=== PATIENT | female | born 1965 | race Caucasian/White ===

== ENCOUNTER 2017-08-19 11:15 | Emergency (ER) | payer OTHER ==
[~2017-08-19] VITALS: Ht 149.9 cm; Wt 158.8 kg
[~2017-08-19 11:15] MED LIST: NOHOMEMEDICATIONS
[2017-08-19] MEDS ORDERED: PROCHAMBER1 EACH INH (11:29)
[2017-08-19 12:03] LABS: HEMATOCRIT 37.2 % (37.0-47.0); HEMOGLOBIN 12.6 gm/dL (12.0-15.0); MCHC 33.9 g/dL (28.0-37.0); MCV 97.4 fL (80.0-100.0); NUCLEATED RBCS 0 /100WBC; PLATELET COUNT* 439 thou/uL (150-400); RBC 3.82 mil/uL (4.20-5.00); RDW-CV 14.6 % (10.5-14.5); WBC 10.6 thou/uL (4.0-11.0)
[2017-08-19 12:11] LABS: ANION GAP 8 mmol/L (7-16); BUN 12 mg/dL (7-18); CALCIUM 9.2 mg/dL (8.5-10.1); CHLORIDE 100 mmol/L (98-107); CO2 31 mmol/L (21-32); CREATININE 0.8 mg/dL (0.6-1.3); GLUCOSE 111 mg/dL (70-99); POTASSIUM 4.5 mmol/L (3.5-5.1); SODIUM 139 mmol/L (136-145)
[2017-08-19 12:21] LABS: ABSOLUTE LYMPHOCYTES 1.4 thou/uL (0.8-5.3); ABSOLUTE MONOCYTES 0.6 thou/uL (0.0-1.2); ABSOLUTE NEUTROPHILS 7.6 thou/uL (1.6-8.1); ALBUMIN 3.4 g/dL (3.4-5.0); ALKALINE PHOSPHATASE 73 U/L (46-116); ATYPICAL LYMPHS 1 %; NT-PRO BRAIN NAT PEPTIDE 30 pg/mL (<300); PLATELET ESTIMATE INCREASED; SGOT 19 U/L (15-37); SGPT 25 U/L (30-65); TOTAL BILIRUBIN 0.7 mg/dL (<0.1-1.0); TOTAL PROTEIN 7.4 g/dL (6.4-8.2); TROPONIN-I LEVEL <0.06 ng/mL (<0.06)
[2017-08-19] MEDS ORDERED: ZPAK PO (12:34)
[2017-08-19] MEDS ORDERED: NORCO 5-325 TA1 EACH PO (12:34)
[2017-08-19] MEDS ORDERED: DOXYCYCLINE 10100 M1 PO (13:09)
[2017-08-19 13:10] VITALS: BP 128/58
--- NOTE | 2017-08-19 16:27 | EKG ---
[place] [address] ELECTROCARDIOGRAM REPORT Name: GOKUL LANGE Room: [facility]#: [id number] Admission: 08/19/17 Attend Phys: Discharge: 08/19/17 Date of : 63 Report #: [id number] THIS REPORT FOR: //name// [facility] ED Test Date: 2017-08-19 Test Time: 11:56:15 Pat Name: GOKUL LANGE Department: Room: Gender: F Enterprise Security Architect: Joe PETERSEN : 1965 Requested By: Moni Canales Order Number: [id number] MD: Paxton Weinberg Measurements Intervals Bre[place] Rate: 90 P: -18 MN: 144 QRS: -25 QRSD: 96 T: 1 QT: 368 QTc: 451 Interpretive Statements Sinus rhythm Borderline left axis deviation Low voltage, precordial leads Consider anterior infarct Borderline T abnormalities, inferior leads No previous ECG available for comparison Electronically Signed On 08-19-2017 16:27:26 CDT by Paxton Weinberg [email or web address] <ELECTRONICALLY SIGNED> By: Paxton Weinberg MD, [facility] 08/19/17 [id number] Paxton Weinberg MD, [facility] /EPI
== END 2017-08-19 13:12 | disposition home or self-care (01) ==
LOC: M.ERS 11:15
PROVIDERS: Nurse Practitioner Family
DX: S22.31XA Fracture of one rib, right side, initial encounter for closed fracture (principal); J18.9 Pneumonia, unspecified organism; J45.909 Unspecified asthma, uncomplicated; X58.XXXA Exposure to other specified factors, initial encounter; Y93.89 Activity, other specified; Y92.89 Other specified places as the place of occurrence of the external cause; Y99.8 Other external cause status

== ENCOUNTER → 2017-09-09 | Outpatient (CLI) | payer OTHER ==
[~2017-09-09] MED LIST changes: +DOXYCYCLINE 10100 M1 PO; +HYDROCODONE-AP1 EAC6 PO; +NORCO 5-325 TA1 EACH PO; +PREDNISONE 10 M10 MG PO; +PROCHAMBER1 EACH INH; +TRAMADOL 50 MG50 MG PO; +ZPAK PO
--- NOTE | ~2017-09-09 | EKG ---
[place] [address] ELECTROCARDIOGRAM REPORT Name: GOKUL LANGE Room: [facility]#: [id number] Admission: 09/09/17 Attend Phys: Drew Brooks DO Discharge: Date of : 63 Report #: [id number] THIS REPORT FOR: //name// [facility] ED Test Date: 2017-09-10 Test Time: 15:34:39 Pat Name: GOKUL LANGE Department: Room: [facility] Gender: F Small Products Ii Assembler: Joe FALK : 1965 Requested By: Skip Mack Order Number: [id number] MD: Measurements Intervals [place] Rate: 106 P: 28 NM: 130 QRS: -73 QRSD: 97 T: 2 QT: 365 QTc: 485 Interpretive Statements Sinus tachycardia Inferior infarct, old Consider anterior infarct Compared to ECG 08/19/2017 11:56:15 Sinus rhythm no longer present T-wave abnormality no longer present Myocardial infarct finding still present [email or web address] By: [id number] Epiphany EpiphanyMD /EPI
== END ==
LOC: M.LAB 15:44
DX: S22.41XA Multiple fractures of ribs, right side, initial encounter for closed fracture (principal); R06.02 Shortness of breath; M79.89 Other specified soft tissue disorders; J18.9 Pneumonia, unspecified organism; X58.XXXA Exposure to other specified factors, initial encounter; Y93.89 Activity, other specified; Y92.89 Other specified places as the place of occurrence of the external cause; Y99.8 Other external cause status

== ENCOUNTER 2017-09-10 14:50 | Inpatient (IN) | payer OTHER ==
[~2017-09-10] VITALS: Ht 149.9 cm; Wt 160.6 kg
[~2017-09-10 14:50] MED LIST changes: -HYDROCODONE-AP1 EAC6 PO; -PREDNISONE 10 M10 MG PO; -TRAMADOL 50 MG50 MG PO
[2017-09-10 14:58] VITALS: BP 135/90
[2017-09-10] MEDS ORDERED: PREDNISONE 10 M10 MG PO (15:09)
[2017-09-10] MEDS ORDERED: TRAMADOL 50 MG50 MG PO (15:09)
--- NOTE | 2017-09-10 15:12 | NUR ---
DR. CLARK NOTIFIED OF PT LOW O2 SAT PT TAKEN DIRECTLY TO ROOM #16.
[2017-09-10 15:42] LABS: HEMATOCRIT 37.2 % (37.0-47.0); HEMOGLOBIN 12.1 gm/dL (12.0-15.0); MCH 30.9 pg (26.0-34.0); MCHC 32.5 g/dL (28.0-37.0); MCV 95.1 fL (80.0-100.0); MPV 7.1 fl. (7.2-11.1); NUCLEATED RBCS 0 /100WBC; PLATELET COUNT* 330 thou/uL (150-400); RBC 3.91 mil/uL (4.20-5.00); RDW-CV 15.6 % (10.5-14.5); WBC 11.7 thou/uL (4.0-11.0)
[2017-09-10 15:47] LABS: BE 3.9 mmol/L (-2 to +3); HCO3 31.3 mmol/L (22.0-26.0); PO2 70.9 mmHg (75.0-100.0); pH 7.333 (7.340-7.450)
[2017-09-10 15:48] LABS: PCO2 60.4 mmHg (35.0-45.0)
[2017-09-10 16:00] LABS: CALCIUM 8.5 mg/dL (8.5-10.1); CREATININE 0.8 mg/dL (0.6-1.3); POTASSIUM 4.6 mmol/L (3.5-5.1)
[2017-09-10 16:01] LABS: APTT 27.3 Seconds (25.0-31.3)
[2017-09-10 16:06] LABS: ABSOLUTE BASOPHILS 0.1 thou/uL (0.0-0.2); ABSOLUTE LYMPHOCYTES 0.7 thou/uL (0.8-5.3); ABSOLUTE MONOCYTES 0.2 thou/uL (0.0-1.2); ABSOLUTE NEUTROPHILS 10.6 thou/uL (1.6-8.1)
[2017-09-10 16:07] LABS: PLATELET ESTIMATE ADEQUATE
[2017-09-10 16:11] LABS: ALBUMIN 3.2 g/dL (3.4-5.0); TOTAL BILIRUBIN 0.5 mg/dL (<0.1-1.0); TOTAL PROTEIN 7.3 g/dL (6.4-8.2)
[2017-09-10 20:17] VITALS: BP 125/60
[2017-09-10 21:36] VITALS: BP 131/54
[2017-09-10 23:12] LABS: SOURCE THORACENTESIS
[2017-09-10 23:13] LABS: CLARITY TURBID; COLOR RED
[2017-09-10 23:59] LABS: BF EOSINOPHILS 2 %; BF LYMPHOCYTES 75 %; BF MONOCYTES 13 %; BF POLYS 10 %
[2017-09-11 03:14] LABS: BF RBC 406895 /mm3; TOTAL CELL COUNT 2296 /mm3
[2017-09-11 03:37] LABS: TOTAL VOLUME 1000 ml
[2017-09-11 04:00] VITALS: BP 115/63
--- NOTE | 2017-09-11 05:55 | NUR ---
END SHIFT: PT RESTED WELL. SHE STATES THAT HER BREATHING IS "MUCH BETTER." REMAINS ON 4L NC TO KEEP SATS AT 90-94%. PT DOES GET SOA WITH EXURSION. IVF INFUSING WITHOUT DIFFICUTLTY. SA RATE 90'S ON MONITOR. NO ECTOPY. THORACENTESIS BANDAGE TO RIGHT BACK- C/D/I. SAFETY PRECAUTIONS IN PLACE. CALL LIGHT IN REACH. PERFORMED HOURLY ROUNDING. WILL CONT TO MONITOR.
[2017-09-11 08:00] VITALS: BP 125/65
--- NOTE | 2017-09-11 08:00 | NUR ---
PT RESTING IN BED,APPEAS ALERT O X 4, DENIES CHEST PAIN, STATES SL , STATES SOB MINIMAL AT REST, ON 02 AT 2L PER NC, SATS 92% . HAS PENSING PULMONARY CONSULT. DENIES PAIN, PIV R DA, IVF
[2017-09-11 12:10] VITALS: BP 116/48
[2017-09-11 16:51] VITALS: BP 131/56
--- NOTE | 2017-09-11 17:59 | NUR ---
pt resting in bed, remains alert o x 4, denies chest pain, sob , C/O r rib secondary to rib fxs . adeq pain contrl with po tramadol, cont on IV abx, IVF, , bRP
[2017-09-11 20:00] VITALS: BP 128/81
[2017-09-12] VITALS: BP 137/85
[2017-09-12 03:59] VITALS: BP 115/61
--- NOTE | 2017-09-12 05:23 | NUR ---
ASSUMED PT CARE AT 1930, PT IS A&OX4, PT DENIES ANY PAIN OR NEEDS AT THIS TIME. PT IS TRACING NSR ON THE MONITOR, ON 2L AT START OF SHIFT, PT REMOVED SELF FROM O2. O2 SATT WAS CHECKED BY RN AND O2 SAT WAS 70 ON RA. THIS RA PLACED PT ON 4L NC TO RECOVER, O2 SATS CAME UP TO 92%. PT SLEPT ON AND OFF THROUGHOUT THE NIGHT. PT DENIES ANY PAIN. REFUSED ULTRAM THROUGHOUT THE SHIFT. HOURLY ROUNDING COMPLETED FOR PT SAFETY. PT IS UP AD RICO IN HER ROOM AND STABLE ON HER FEET. BED IN LOW POSITION, CALL LIGHT IN REACH, SPOUSE AT BED SIDE.
[2017-09-12 08:00] VITALS: BP 125/65
[2017-09-12 11:30] VITALS: BP 135/81
[2017-09-12 16:00] VITALS: BP 122/93
--- NOTE | 2017-09-12 18:35 | NUR ---
PAITNET RESTING IN BED. RESPIRATORY STATUS IS CURRENTLY WHEEZY AND MILDLY LABOURED AAT TIMES. VITAL SIGNS STABLE AND PATINET IS IN NO APPARNET SIGNS OF DISTRES AT THIS TIME. HOURLY ROUNDING COMPLETED FOR PATIENT SAFETY AND PATIENT IN NO APPARENT DISTRESS. PAITNET UTILIZING 4.0 LITERS PER NASAL CANULA.
[2017-09-13] VITALS: BP 141/64
--- NOTE | 2017-09-13 03:48 | NUR ---
ASSUMED CARE OF PT AT 1930, NURSING ASSESSMENT COMPLETED AT START OF SHIFT. TRACING SINUS RHYTHM ON REFINERY OPERATOR HELPER. SPOUSE AT BEDSIDE. HOURLY ROUNDING COMPLETED, CALL LIGHT WITHIN REACH. NO FALLS THIS SHIFT. VOICED NO CONCERNS THIS SHIFT.
[2017-09-13 08:00] VITALS: BP 137/81
--- NOTE | 2017-09-13 09:53 | CON ---
[address] [address] CONSULTATION Name: GOKUL LANGE Room: [address] IN .R.#: [id number] Admission: 09/10/17 Attend Phys: Mandy Carmona MD Discharge: Date of : 63 Report #: [id number] THIS REPORT FOR: //name// CC: Drew Carmona REASON FOR CONSULTATION: Pleural effusion. HISTORY OF PRESENT ILLNESS: This is a 51-year-old female patient with past medical history of smoking. She smoked until August 30 of this year for a long time, although she told me she does not carry a diagnosis of COPD, but she has some inhalers at home. She is morbidly obese. She had hypersomnia and snoring, but she denied being evaluated in the past for sleep apnea. She is not on any CPAP therapy or oxygen at home. She reported that in early July, she developed picture of cold and she received antibiotic, but since then she continued to have right-sided chest pain associated with increasing shortness of breath. At one point, she was told she had rib fracture related to her severe cough. She presented to the ER because of the continued right-sided chest pain. She underwent a CT of the chest that demonstrated right-sided pleural effusion with a thick rim of the pleural space. The results will be discussed below. She underwent thoracentesis yesterday with 1000 mL of fluid drained. She feels improvement. She is currently on 2 liter oxygen. She reported occasional sputum production, but nothing looks red. She denied any sick contact. She denied any headache or blurring of vision. She is not sure if she has any wheezes. ALLERGIES: No known drug allergies. HOME MEDICATIONS: She uses some kind of inhaler. She does not know which kind. PAST MEDICAL HISTORY: She carries diagnosis of COPD and asthma. PAST SURGICAL HISTORY: No major chest surgery. SOCIAL HISTORY: She continues to smoke daily. Does not drink alcohol excessively, does not abuse drugs. REVIEW OF SYSTEMS: Currently, she has no fever, no chills, but she has right-sided chest pain, increasing shortness of breath and cough, although mostly dry. She denied any change in bowel habits, urinary symptoms or muscular pain. The rest of the review of system was negative to all system reviewed with the patient. PHYSICAL EXAMINATION: VITAL SIGNS: She is on 4 liters oxygen with saturation more than 90%, blood pressure 130/54, breathing 18 times a minute, temperature 36.8. HEENT: HEAD: Normocephalic, atraumatic. Pup[place] [address] CONSULTATION Name: GOKUL LANGE Room: [address] [place] ..#: [id number] Admission: 09/10/17 Attend Phys: Mandy Carmona MD Discharge: Date of : 63 Report #: [id number] Extraocular movement intact. Oral cavity, Mallampati of 3-4, overweight lady. NECK: Supple. No lymphadenopathy. Trachea central. CHEST: Diminished with bilateral prolonged expiratory phase, rare wheezes, crackles heard at the right lung base. HEART: S1, S2, no murmur. ABDOMEN: Obese, soft, lax, nontender. EXTREMITIES: Lower extremity, trace edema, no calf tenderness. SKIN: Normal for age and race, no rash. PSYCHIATRIC: Mood and affect appropriate. Good insight and judgment. NEUROLOGIC: Moving 4 extremities spontaneously. No focal weakness. CURRENT MEDICATIONS: Reviewed including Zosyn, vancomycin, prednisone and Lovenox. LABORATORY DATA: Her V/Q scan was reported as low probability of PE. Chest x-ray showed right-sided basilar atelectasis and Doppler ultrasound negative for DVT. The CT of the chest did not show pulmonary embolus, but there is moderate collapse and surrounding rent of the pleural fluid down the fissure with no abnormality on the left side. No masses seen. Also, there is recent fracture of the right 9th rib and 10th rib that is healing. Her white blood count 11.7, hemoglobin 12.1, platelet 330. ABG 7.33/60/70. Her INR is 1. D-dimer was elevated. Her creatinine is 0.8 with a bicarbonate of 30 and potassium 4.6. She underwent thoracentesis. The fluid was reported to be red in color, turbid. She had lymphocytosis on her fluids and protein and LDH is pending. IMPRESSION: 1. Acute respiratory failure, hypoxic and hypercapnic. 2. Pneumonia. 3. Right-sided pleural effusion. 4. History of smoking. The CT scan is concerning for loculation. She had 1000 mL of fluid drained, red in color, which could be related to trauma from the rib fracture; however, with the waiting for the protein, LDH and the cultures on the pleural fluid, microbiology, she is on 4 liter oxygen, we will start titrating oxygen down. I will give her a pulse dose of steroids, continue the current dose of steroids she is on, continue antibiotics. Definitely, she fits the profile for obstructive sleep apnea and she needs outpatient sleep study. [address] [address] CONSULTATION Name: GOKUL LANGE Room: [address] [place] .R.#: [id number] Admission: 09/10/17 Attend Phys: Mandy Carmona MD Discharge: Date of : 63 Report #: [id number] We will do repeat chest x-ray PA and lateral for 09/13/2017 and we will follow along with you. Thank you for the consult. <ELECTRONICALLY SIGNED> By: Ko Howell MD 09/13/17 0953 0801 1429Sharda Church MD /nt
[2017-09-13 11:56] VITALS: BP 137/92
--- NOTE | 2017-09-13 14:10 | NUR ---
MET WITH PT AND SPOUSE TO DISCUSS HOME SITUATION/DC PLANNING. PT LIVES WITH SPOUSE. SHE IS INDEPENDENT, WORKS OUTSIDE THE HOME. USES NO EQUIPMENT AND HASN'T HAD HH. DENIES ANY DC NEEDS. HOPES TO GO HOME SOON. WILL FOLLOW
[2017-09-13 15:37] VITALS: BP 152/80
[2017-09-13 17:10] LABS: BODY FLUID LDH 629 IU/L (()); BODY FLUID PROTEIN 4.5 g/dL (())
--- NOTE | 2017-09-13 18:19 | NUR ---
K[place]LEY RESTING IN CHAIR IN ROOM. VITAL SIGNS STABLE AND PATIENT PROGRESSING TOWARDS GOALS. THORACENTESIS OF RIGHT UPPER LOBE PERFORMED TODAY WITH 1900 ML REMOVED. PATIENT IS RECOVERING WELL AND REPORTS LESS WORK OF BREATH. BREATH SOUNDS SLIGHTLY WHEEZY. IV FLUIDS AND ANTIBIOTICS PER ORDERS. HOURLY ROUNDING COMPLETD FOR PATIENT SAFETY AND PATIENT PROGRESSING TOWARDS GOALS.
[2017-09-13 20:00] VITALS: BP 119/66
[2017-09-14] VITALS: BP 118/80
--- NOTE | 2017-09-14 03:56 | NUR ---
ASSUMED PT CARE AT 1930, PT IS A&OX4, PT IS TRACING NSR ON THE MONTIOR, ON 2.5L NC SATTING MID TO LOW 90'S. PT TENDS TO TAKE OFF HER OXYGEN, NEEDS CONSTANT REMIND OF KEEPING O2 IN PLACE, PT C/O SOME RIGHT RIB PAIN, PRN PAIN MEDICATION GIVEN PER MAR. IVF INFUSING PER MAR. BED IN LOW POSITION, CALL LIGHT IN REACH, HOULRY ROUNDING COMPELETD FOR PT SAFETY.
[2017-09-14 04:00] VITALS: BP 128/71
[2017-09-14 08:00] VITALS: BP 119/81
[2017-09-14 11:46] VITALS: BP 147/82
[2017-09-14 12:48] VITALS: BP 147/82
[2017-09-14 13:03] VITALS: BP 147/82
--- NOTE | 2017-09-14 14:53 | NUR ---
[facility] MED REC, MEDICATION EDCUATION, STROKE EDUCATION, AND NEED FOR FOLLOW UP APPOINTMENTS COVERED AND STATED UNDERSTOOD BY PATIENT AND DAUGHTER. HOURLY ROUNDING COMPLETD FOR PATIENT SAFETY AND PATIENT IN NO APPARENT SIGNS OF DISTRES AT TME OF DISCHARGE. PORTABLE OXYGEN DELIVERED PRIOR TO DISCHARGE. PATIENT TAKEN VIA WHEELCHAIR WITH O2 TO AWAITNG CAR WITH DAUGHTER PRESENT. DC TIME OF 13:55.
--- NOTE | 2017-09-14 15:01 | NUR ---
ORDER RECEIVED TO [facility] PATIENT TO HOME WITH HOME HEALTH. MED REC, MEDICATION EDUCATION, STROKE EDUCATION, AND NEED FOR FOLLOW UP APPOINTMENTS COVERED AND STATED UNDERSTOOD. HOURLY ROUNDING COMPLETED FOR PATIENT SAFETY DARSHANA LANTIGUA HAS PROGRESSED. DC TIME OF 13:55.
--- NOTE | 2017-09-14 15:07 | CNG ---
[address] [address] CYTO-NONGYN REPORT PROCEDURE Name: GABBY CASTELLON Room: [address] [facility]#: [id number] Admission: 09/10/17 Date of : 63 Discharge: 09/14/17 Report #: [id number] Path Case #: [id number] CYTOPATHOLOGY REPORT COLLECTION DATE: 09/09/2017 RECEIVED DATE: 09/13/2017 SUBMITTING PHYS: Dr. Mandy Carmona OTHER PHYS: Dr. Rinku Brooks CLINICAL HISTORY: Right pleural effusion, hypoxia, hypercapnea SPECIMEN(S) RECEIVED: A.Pleural fluid, Right * * * * * * * * * * * * FINAL DIAGNOSIS: A. Pleural fluid, Right: - No malignant cells identified. Blood and otherwise paucicellular specimen with few inflammatory cells, but no definite mesothelial cells identified. (MOLINA:murali; 09/14/2017) PATHOLOGIST: Teo Loo M.D. REPORT ELECTRONICALLY SIGNED BY: Teo Loo M.D. DATE/TIME: 09/14/2017 15:06 * * * * * * * * * * * * GROSS PATHOLOGY: A. Pleural fluid, Right: The specimen is submitted fixed, labeled "Gabby Castellon". Received by the Cytology Department is 65 mL of cloudy red fluid out of a total volume of 1000 cc's. One ThinPrep slide and an alcohol fixed cell block were prepared. (mm 4) [employer] BUSINESS(S): ALICE Hendrickson([facility]) INITIAL CPT CODE(S): A; 20128, 66480 Professional services [place] [address] Technical services performed by [facility] at [address] [place] [address], [address], [place] [address]. [facility] [address] [place] [address], [facility] [address] [place] [address] PHONE: [phone] [address] CYTO-NONGYN REPORT PROCEDURE Name: GABBY CASTELLON Room: [address] IN ..#: [id number] Admission: 09/10/17 Date of : 63 Discharge: 09/14/17 Report #: [id number] Path Case #: [id number] DIRECTOR: David Rutherford M.D. * * * END OF REPORT * * *
[2017-09-16 07:39] LABS: SOURCE PLEURAL
== END 2017-09-14 14:00 | disposition home or self-care (01) | DRG 193 ==
LOC: M.ERS 14:50 → M.TBA-ER 18:13 → M.2W 18:13
PROVIDERS: Emergency Medicine; ADMIT Internal Medicine
PROC: 0W993ZX Drainage of Right Pleural Cavity, Percutaneous Approach, Diagnostic (ICD-10-PCS; principal; 2017-09-13)
DX: J18.9 Pneumonia, unspecified organism (principal); J96.21 Acute and chronic respiratory failure with hypoxia; J96.22 Acute and chronic respiratory failure with hypercapnia; J44.0 Chronic obstructive pulmonary disease with (acute) lower respiratory infection; J90 Pleural effusion, not elsewhere classified; Z68.45 Body mass index [BMI] 70 or greater, adult; R65.10 Systemic inflammatory response syndrome (SIRS) of non-infectious origin without acute organ dysfunction; G47.33 Obstructive sleep apnea (adult) (pediatric); E66.01 Morbid (severe) obesity due to excess calories; F17.210 Nicotine dependence, cigarettes, uncomplicated; Z87.81 Personal history of (healed) traumatic fracture; Z79.899 Other long term (current) drug therapy

== ENCOUNTER → 2017-09-27 | Outpatient (CLI) | payer OTHER ==
[~2017-09-27] MED LIST changes: +HYDROCODONE-AP1 EAC6 PO; +PREDNISONE 10 M10 MG PO; +TRAMADOL 50 MG50 MG PO
== END ==
LOC: M.RAD 09-24 10:30
DX: J90 Pleural effusion, not elsewhere classified (principal)

== ENCOUNTER → 2017-10-08 | Outpatient (CLI) | payer OTHER | END | disposition home or self-care (01) | LOC: M.ULTRA 10:54 | DX: J90 Pleural effusion, not elsewhere classified (principal); Z87.81 Personal history of (healed) traumatic fracture; Z87.01 Personal history of pneumonia (recurrent); Z79.891 Long term (current) use of opiate analgesic; Z79.899 Other long term (current) drug therapy ==

== ENCOUNTER → 2017-11-17 | Outpatient (CLI) | payer OTHER | LOC: M.RAD 11:13 | DX: J90 Pleural effusion, not elsewhere classified (principal); R06.02 Shortness of breath ==

== ENCOUNTER 2018-03-14 09:19 | Emergency (ER) | payer OTHER ==
[~2018-03-14] VITALS: Ht 152.4 cm; Wt 140.2 kg
[~2018-03-14 09:19] MED LIST changes: -HYDROCODONE-AP1 EAC6 PO
[2018-03-14 10:56] LABS: CREATININE 0.9 mg/dL (0.6-1.3); POTASSIUM 4.7 mmol/L (3.5-5.1)
[2018-03-14] MEDS ORDERED: HYDROCODONE-AP1 EAC6 PO (11:03)
[2018-03-14 11:35] VITALS: BP 139/93
--- NOTE | 2018-03-15 17:03 | EKG ---
[place] [address] ELECTROCARDIOGRAM REPORT Name: GOKUL LANGE [id number] Admission: 03/14/18 Attend Phys: Discharge: 03/14/18 Date of : 63 Report #: [id number] THIS REPORT FOR: //name// [facility] ED Test Date: 2018-03-14 Test Time: 10:30:14 Pat Name: GOKUL LANGE Department: Room: Gender: F Air Brush Artist: Joe NUNEZ : 1965 Requested By: Star Hooper Order Number: [id number] MD: Mahendra Vu Measurements Intervals [place] Rate: 79 P: -14 AR: 160 QRS: -33 QRSD: 105 T: 0 QT: 389 QTc: 447 Interpretive Statements Sinus rhythm Left axis deviation Low voltage, precordial leads Abnormal R-wave progression, late transition Borderline T abnormalities, anterior leads Compared to ECG 09/10/2017 15:34:39 Left-axis deviation now present Low QRS voltage now present T-wave abnormality now present Sinus rate decreased Electronically Signed On 03-15-2018 17:02:46 CDT by Mahendra Vu [email or web address] <ELECTRONICALLY SIGNED> By: Mahendra Vu MD, FACC 03/15/18 1702 1030 1030 Mahendra Vu MD, FACC /EPI
== END 2018-03-14 11:35 | disposition home or self-care (01) ==
LOC: M.ERS 09:19
PROVIDERS: Emergency Medicine Emergency Medical Services
DX: J40 Bronchitis, not specified as acute or chronic (principal); R09.1 Pleurisy; J44.9 Chronic obstructive pulmonary disease, unspecified; E66.9 Obesity, unspecified; Z68.44 Body mass index [BMI] 60.0-69.9, adult